=== PATIENT | female | born 1995 | race Two or more races ===

== ENCOUNTER 2022-03-20 11:44 | Inpatient (IN) | payer OTHER ==
[~2022-03-20] VITALS: Ht 157.5 cm; Wt 48.5 kg
[~2022-03-20 11:44] MED LIST: CIPRO500 MG PO; FLAGYL500MG PO; INTESTINEX680 M1 PO; STELARA90 MG/1 ML
[2022-03-29] MEDS ORDERED: VITAMIN D3125 MC2 PO (13:42)
[2022-03-29] MEDS ORDERED: INTESTINEX680 M1 PO (13:42)
[2022-03-29] MEDS ORDERED: FOLIC ACID1 MG PO (14:15)
[2022-03-29] MEDS ORDERED: PREDNISONE20 MG PO (14:15)
[2022-03-29] MEDS ORDERED: PROTONIX40 MG PO (14:15)
== END 2022-03-29 22:29 | disposition home or self-care (01) | DRG 330 ==
LOC: SURH 11:44
PROVIDERS: ADMIT Surgery; ATTEND Surgery
PROC: 0DJD8ZZ Inspection of Lower Intestinal Tract, Via Natural or Artificial Opening Endoscopic (ICD-10-PCS; 2022-03-20)
PROC: 02HV33Z Insertion of Infusion Device into Superior Vena Cava, Percutaneous Approach (ICD-10-PCS; 2022-03-24)
PROC: 30243N1 Transfusion of Nonautologous Red Blood Cells into Central Vein, Percutaneous Approach (ICD-10-PCS; 2022-03-25)
PROC: 3E0436Z Introduction of Nutritional Substance into Central Vein, Percutaneous Approach (ICD-10-PCS; 2022-03-26)
PROC: 3E0F7SF Introduction of Other Gas into Respiratory Tract, Via Natural or Artificial Opening (ICD-10-PCS; 2022-03-26)
PROC: 0D1B4Z4 Bypass Ileum to Cutaneous, Percutaneous Endoscopic Approach (ICD-10-PCS; principal; 2022-03-26 15:00)
DX: K50.113 Crohn's disease of large intestine with fistula (principal); N82.4 Other female intestinal-genital tract fistulae; K56.690 Other partial intestinal obstruction; K52.89 Other specified noninfective gastroenteritis and colitis; D63.8 Anemia in other chronic diseases classified elsewhere

== ENCOUNTER 2023-11-18 23:03 | Inpatient (IN) | payer OTHER ==
[~2023-11-18] VITALS: Ht 157.5 cm; Wt 49.9 kg
[~2023-11-18 23:03] MED LIST changes: +FOLIC ACID1 MG PO; +PREDNISONE20 MG PO; +PROTONIX40 MG PO; +VITAMIN D3125 MC2 PO
[2023-11-19 02:22] LABS: PH,URINE 5.5 (5.0-8.0); URINE APPEARANCE Cloudy; URINE BILIRRUBIN Negative (NEGATIVE); URINE BLOOD NHT; URINE COLOR Dark Yellow; URINE GLUCOSE Negative (NEGATIVE); URINE LEUKOCYTE Small; URINE NITRATE Negative; URINE PROTEIN Trace (NEGATIVE); URINE UROBILINOGEN 0.2 E.U./dl
[2023-11-19 02:23] LABS: URINE EPITHELIAL CELLS 75.4 uL (0.0-38.8); URINE RBC 22.1 uL (0.0-20.8); URINE WBC 140.2 uL (0.0-23.2)
[2023-11-19 02:26] LABS: MEAN CELL VOLUME 90.2 fL (80.00-100.00); MEAN CORPUSCULAR HEMOGLOBIN 30.8 pg (27.00-32.0); MEAN CORPUSCULAR HGB CONC 34.3 g/dl (32.0-36.0); PLATELET COUNT 366 K/uL (150-450); RED BLOOD COUNT 2.46 M/uL (4.00-6.00); RED CELL DISTRIBUTION WIDTH 15.5 % (11.5-14.5)
[2023-11-19 02:27] LABS: HEMATOCRIT 22.2 % (36.0-45.00); HEMOGLOBIN 7.6 g/dL (12.0-15.00)
[2023-11-19 02:47] LABS: INR 0.99; PROTHROMBIN TIME 10.4 SECONDS (9.0-11.5)
[2023-11-19 02:53] LABS: URINE CRYSTALS MANY /HPF
[2023-11-19 02:54] LABS: PARTIAL THROMBOPLASTIN TIME < 20.0 SECONDS (22.0-34.0)
[2023-11-19 02:55] LABS: ALBUMIN 2.3 gm/dL (3.4-5.0); BILIRUBIN TOTAL 0.71 mg/dL (0.3-1.2); CALCIUM 8.3 mg/dL (8.5-10.1); CREATININE SERUM 0.55 mg/dL (0.55-1.02); GFR 133.61; GLOBULINA 2.8 G/DL (2.4-3.5); POTASSIUM 4.02 mEq/L (3.5-5.1); TOTAL PROTEIN 5.1 gm/dL (6.4-8.2)
[2023-11-19 16:29] LABS: HEMATOCRIT 31.7 % (36.0-45.00); HEMOGLOBIN 10.9 g/dL (12.0-15.00); MEAN CELL VOLUME 86.2 fL (80.00-100.00); MEAN CORPUSCULAR HEMOGLOBIN 29.8 pg (27.00-32.0); MEAN CORPUSCULAR HGB CONC 34.5 g/dl (32.0-36.0); PLATELET COUNT 268 K/uL (150-450); RED BLOOD COUNT 3.67 M/uL (4.00-6.00); RED CELL DISTRIBUTION WIDTH 15.6 % (11.5-14.5)
[2023-11-19 20:48] LABS: CALCIUM 7.7 mg/dL (8.5-10.1); CHOL HDL RATIO 3.2 (0-5.0); CREATININE SERUM 0.66 mg/dL (0.55-1.02); GFR 108.25; POTASSIUM 3.55 mEq/L (3.5-5.1)
[2023-11-20 06:58] LABS: HEMATOCRIT 27.5 % (36.0-45.00); HEMOGLOBIN 9.7 g/dL (12.0-15.00); MEAN CELL VOLUME 85.8 fL (80.00-100.00); MEAN CORPUSCULAR HEMOGLOBIN 30.2 pg (27.00-32.0); MEAN CORPUSCULAR HGB CONC 35.2 g/dl (32.0-36.0); PLATELET COUNT 267 K/uL (150-450); RED BLOOD COUNT 3.21 M/uL (4.00-6.00)
[2023-11-20 07:13] LABS: ALBUMIN 2.1 gm/dL (3.4-5.0); CALCIUM 7.9 mg/dL (8.5-10.1); CREATININE SERUM 0.64 mg/dL (0.55-1.02); GFR 112.17; MAGNESIUM 1.9 mg/dL (1.8-2.4); POTASSIUM 3.82 mEq/L (3.5-5.1)
[2023-11-21 06:43] LABS: HEMATOCRIT 26.4 % (36.0-45.00); HEMOGLOBIN 9.3 g/dL (12.0-15.00); MEAN CELL VOLUME 86.1 fL (80.00-100.00); MEAN CORPUSCULAR HEMOGLOBIN 30.3 pg (27.00-32.0); MEAN CORPUSCULAR HGB CONC 35.1 g/dl (32.0-36.0); PLATELET COUNT 246 K/uL (150-450); RED BLOOD COUNT 3.06 M/uL (4.00-6.00); RED CELL DISTRIBUTION WIDTH 15.9 % (11.5-14.5)
[2023-11-23 10:15] LABS: HEMATOCRIT 25.2 % (36.0-45.00); MEAN CELL VOLUME 88.3 fL (80.00-100.00); MEAN CORPUSCULAR HGB CONC 35.2 g/dl (32.0-36.0); PLATELET COUNT 300 K/uL (150-450); RED BLOOD COUNT 2.86 M/uL (4.00-6.00); RED CELL DISTRIBUTION WIDTH 15.4 % (11.5-14.5)
[2023-11-23 10:17] LABS: MEAN CORPUSCULAR HEMOGLOBIN 31.1 pg (27.00-32.0)
[2023-11-23 10:18] LABS: HEMOGLOBIN 8.9 g/dL (12.0-15.00)
[2023-11-23 10:48] LABS: INR 0.99; PROTHROMBIN TIME 10.4 SECONDS (9.0-11.5)
[2023-11-23 10:55] LABS: ALBUMIN 2.5 gm/dL (3.4-5.0); BILIRUBIN TOTAL 0.5 mg/dL (0.3-1.2); BILIRUBIN,CONJUGATED 0.23 mg/dL (0.0-0.2); BILIRUBIN,UNCONJUGATED 0.27 mg/dL (0.0-0.6); CALCIUM 8.6 mg/dL (8.5-10.1); CREATININE SERUM 0.59 mg/dL (0.55-1.02); GFR 123.21; GLOBULINA 3.1 G/DL (2.4-3.5); MAGNESIUM 1.8 mg/dL (1.8-2.4); POTASSIUM 3.84 mEq/L (3.5-5.1); TOTAL PROTEIN 5.6 gm/dL (6.4-8.2)
[2023-11-23 11:12] LABS: PARTIAL THROMBOPLASTIN TIME < 20.0 SECONDS (22.0-34.0)
[2023-11-23 11:32] LABS: UREA CLEARANCE 41.8 ML/MIN
[2023-11-24 14:29] LABS: HEMATOCRIT 27.2 % (36.0-45.00); HEMOGLOBIN 9.3 g/dL (12.0-15.00); MEAN CELL VOLUME 87.6 fL (80.00-100.00); MEAN CORPUSCULAR HGB CONC 34.2 g/dl (32.0-36.0); PLATELET COUNT 290 K/uL (150-450); RED CELL DISTRIBUTION WIDTH 15.5 % (11.5-14.5)
[2023-11-26 06:23] LABS: MEAN CELL VOLUME 88.1 fL (80.00-100.00); MEAN CORPUSCULAR HGB CONC 34.8 g/dl (32.0-36.0); PLATELET COUNT 208 K/uL (150-450); RED BLOOD COUNT 2.59 M/uL (4.00-6.00); RED CELL DISTRIBUTION WIDTH 15.7 % (11.5-14.5)
[2023-11-26 06:24] LABS: HEMATOCRIT 22.8 % (36.0-45.00); MEAN CORPUSCULAR HEMOGLOBIN 30.8 pg (27.00-32.0)
[2023-11-26 06:42] LABS: BILIRUBIN TOTAL 0.31 mg/dL (0.3-1.2); CALCIUM 7.6 mg/dL (8.5-10.1); CREATININE SERUM 0.56 mg/dL (0.55-1.02); GFR 130.86; GLOBULINA 2.6 G/DL (2.4-3.5); POTASSIUM 3.57 mEq/L (3.5-5.1); TOTAL PROTEIN 4.6 gm/dL (6.4-8.2)
[2023-11-27 11:30] LABS: HEMATOCRIT 28.5 % (36.0-45.00); HEMOGLOBIN 9.6 g/dL (12.0-15.00); MEAN CELL VOLUME 85.7 fL (80.00-100.00); MEAN CORPUSCULAR HEMOGLOBIN 28.8 pg (27.00-32.0); MEAN CORPUSCULAR HGB CONC 33.6 g/dl (32.0-36.0); PLATELET COUNT 201 K/uL (150-450); RED BLOOD COUNT 3.32 M/uL (4.00-6.00); RED CELL DISTRIBUTION WIDTH 16.6 % (11.5-14.5)
[2023-11-27 20:46] LABS: HEMATOCRIT 32.3 % (36.0-45.00); HEMOGLOBIN 11.2 g/dL (12.0-15.00); MEAN CELL VOLUME 84.9 fL (80.00-100.00); MEAN CORPUSCULAR HEMOGLOBIN 29.4 pg (27.00-32.0); MEAN CORPUSCULAR HGB CONC 34.6 g/dl (32.0-36.0); PLATELET COUNT 214 K/uL (150-450)
[2023-11-29 07:33] LABS: HEMOGLOBIN 11.5 g/dL (12.0-15.00); MEAN CELL VOLUME 85.9 fL (80.00-100.00); MEAN CORPUSCULAR HEMOGLOBIN 29.1 pg (27.00-32.0); MEAN CORPUSCULAR HGB CONC 33.8 g/dl (32.0-36.0); PLATELET COUNT 200 K/uL (150-450); RED BLOOD COUNT 3.95 M/uL (4.00-6.00); RED CELL DISTRIBUTION WIDTH 16.2 % (11.5-14.5)
[2023-11-29] MEDS ORDERED: HYOSCYAMINE0.125 M1 SL (11:59)
[2023-11-29] MEDS ORDERED: INTEGRA F CAPS1 EACH PO (11:59)
[2023-11-29] MEDS ORDERED: FAMOTIDINE20 MG PO (11:59)
[2023-11-29] MEDS ORDERED: PREDNISONE 5MG PO (11:59)
[2023-11-29] MEDS ORDERED: SIMETHICONE125 M1 PO (11:59)
[2023-11-29] MEDS ORDERED: LOPERAMIDE2 MG PO (11:59)
[2023-11-29] MEDS ORDERED: NITRO-BID1 G1 SL (11:59)
[2023-12-01] MEDS ORDERED: AMOX1TAB5 PO (12:47)
== END 2023-11-29 12:15 | disposition home or self-care (01) | DRG 329 ==
LOC: ICU 23:03 → SURG 23:03 → ICU 11-19 20:02 → SURG 11-21 14:21
PROVIDERS: General Practice; Internal Medicine; Surgery; ADMIT Internal Medicine; ATTEND Internal Medicine
PROC: 0D1B4Z4 Bypass Ileum to Cutaneous, Percutaneous Endoscopic Approach (ICD-10-PCS; 2023-11-19)
PROC: 30233N1 Transfusion of Nonautologous Red Blood Cells into Peripheral Vein, Percutaneous Approach (ICD-10-PCS; 2023-11-19)
PROC: 0DT84ZZ Resection of Small Intestine, Percutaneous Endoscopic Approach (ICD-10-PCS; principal; 2023-11-19 12:45)
DX: K50.114 Crohn's disease of large intestine with abscess (principal); D65 Disseminated intravascular coagulation [defibrination syndrome]; I96 Gangrene, not elsewhere classified; K94.11 Enterostomy hemorrhage; Z74.01 Bed confinement status; D63.8 Anemia in other chronic diseases classified elsewhere; K62.89 Other specified diseases of anus and rectum; Z20.822 Contact with and (suspected) exposure to COVID-19